=== PATIENT | male | born 1990 | race Two or more races ===

== ENCOUNTER 2017-02-02 19:24 | Emergency (ER) | payer BC, MEDICAID ==
[~2017-02-02] VITALS: Ht 180.3 cm; Wt 95.5 kg
[2017-02-02] MEDS ORDERED: DEPA250T32 PO (19:33)
[2017-02-02] MEDS ORDERED: FLON1SPR (23:05)
[2017-02-02] MEDS ORDERED: CEFD1CAP8 PO (23:05)
[2017-02-02] MEDS ORDERED: MECL-68 PO (23:05)
[2017-02-02 23:13] VITALS: BP 138/72
--- NOTE | 2017-02-03 11:44 | ECGEPIP ---
Stationary ECG Study [facility] - ED Test Date: 2017-02-02 Pat Name: LUIS M MELTON Department: Room: - Gender: M Hotel Server: ct : 1990 Requested By: Edith Pozo Order Number: [id number] Reading MD: Maria Del Rosario Casiano Measurements Intervals [place] Rate: 74 P: 29 MI: 144 QRS: 17 QRSD: 97 T: -4 QT: 355 QTc: 395 Interpretive Statements SINUS RHYTHM NONSPECIFIC T-WAVE ABNORMALITY NO PRIOR FOR COMPARISON Electronically Signed On 02-03-2017 11:44:38 EDT by Maria Del Rosario Casiano
== END 2017-02-02 23:14 | disposition home or self-care (01) ==
LOC: M ED 19:24
DX: J30.9 Allergic rhinitis, unspecified (principal); H81.10 Benign paroxysmal vertigo, unspecified ear

== ENCOUNTER → 2017-02-28 | Outpatient (REF) | payer BC, MEDICAID, OTHER ==
[~2017-02-28] MED LIST: CEFD1CAP8 PO; DEPA250T32 PO; FLON1SPR; MECL-68 PO
== END ==
LOC: M SFHCLERA 12:07
PROVIDERS: ATTEND Family Medicine
DX: Z13.220 Encounter for screening for lipoid disorders (principal)

== ENCOUNTER → 2018-09-11 | Outpatient (REF) | payer BC | LOC: M SFHCLERA 17:59 | PROVIDERS: ATTEND Nurse Practitioner Family | DX: R53.81 Other malaise (principal) ==

== ENCOUNTER → 2019-02-28 | Outpatient (REF) | payer BC ==
[2019-02-28 12:06] LABS: HEMATOCRIT 44.6 % (42.0-52.0); HEMOGLOBIN 15.3 g/dl (13.5-17.5); MEAN CORPUSCULAR HEMOGLOBIN 30.1 pg (27.0-33.0); MEAN CORPUSCULAR HGB CONC 34.3 g/dl (32.0-36.5); MEAN CORPUSCULAR VOLUME 87.8 fl (80.0-96.0); PLATELET COUNT, AUTOMATED 261 10^3/uL (150-450); RED BLOOD COUNT 5.08 10^6/uL (4.30-6.10)
[2019-02-28 12:51] LABS: HEMOGLOBIN A1c 5.1 %
[2019-02-28 13:02] LABS: ALBUMIN 3.9 GM/DL (3.2-5.2); ALT/SGPT 55 U/L (12-78); BLOOD UREA NITROGEN 11 MG/DL (7-18); CALCIUM LEVEL 9.3 MG/DL (8.5-10.1); CARBON DIOXIDE LEVEL 30 MEQ/L (21-32); CHLORIDE LEVEL 104 MEQ/L (98-107); CHOLESTEROL LEVEL 137 MG/DL (<200); CHOLESTEROL RISK RATIO 3.425 (<5); GLOMERULAR FILTRATION RATE > 60.0 (>60); GLUCOSE, FASTING 92 MG/DL (70-100); HDL CHOLESTEROL 40 MG/DL (>40); LDL CHOLESTEROL 73 MG/DL (<100); NON-HDL-C 97 MG/DL; POTASSIUM SERUM 4.1 MEQ/L (3.5-5.1); SODIUM LEVEL 138 MEQ/L (136-145); TOTAL PROTEIN 7.6 GM/DL (6.4-8.2); TRIGLYCERIDES LEVEL 119 MG/DL (<150)
== END ==
LOC: M SFHCLERA 09:27
PROVIDERS: ATTEND Family Medicine
DX: E66.3 Overweight (principal); G40.909 Epilepsy, unspecified, not intractable, without status epilepticus

== ENCOUNTER → 2019-04-04 | Outpatient (CLI) | payer BC ==
--- NOTE | 2019-04-04 08:46 | REP ---
CT IACs / temporal bones: 04/04/2019. Indication: Ear pain. Comparison: 10/20/2010. Technique: Unenhanced axial CT images of the temporal bones/IACs were performed with coronal reconstructions provided. Findings: The cerebellopontine/medullary angles and IACs are unremarkable. No inner ear anatomy abnormalities are present including no evidence of semicircular canal dehiscence. There is no carotid artery aberrancy. The middle ear cavities are clear bilaterally. There is no evidence of ossicular/osseous erosion. The EACs are unremarkable bilaterally as well. No significant mastoid effusion is present. Retention cyst and minimal mucosal thickening is noted within the visualized maxillary sinuses. The nasopharyngeal soft tissue is unremarkable. Impression: Essentially unremarkable CT evaluation of the IACs / temporal bones. Incompletely evaluated mild appearing maxillary sinus disease. Electronically Signed by Madi Mcclain DO 04/04/2019 08:38 A
== END ==
LOC: M RAD 06:58
PROVIDERS: ATTEND Otolaryngology
DX: H92.02 Otalgia, left ear (principal)

== ENCOUNTER → 2021-06-18 | Outpatient (REF) ==
[~2021-06-18] MED LIST changes: -CEFD1CAP8 PO; +CEFD300C41 PO; -MECL-68 PO; +MECL1TAB31 PO
== END ==
LOC: M LABSMTC 10:20
PROVIDERS: ATTEND Family Medicine
DX: Z11.52 Encounter for screening for COVID-19 (principal)

== ENCOUNTER → 2022-02-25 | Outpatient (CLI) | payer BC | LOC: M CARPUL 08:58 | PROVIDERS: ATTEND Physician Assistant | DX: R01.1 Cardiac murmur, unspecified (principal); I10 Essential (primary) hypertension ==

== ENCOUNTER → 2022-03-01 | Outpatient (REF) ==
[2022-03-01 11:03] LABS: RSV AMPLIFICATION NEGATIVE (NEGATIVE)
== END ==
LOC: M LABSMTC 09:04
PROVIDERS: ATTEND Family Medicine
DX: Z11.52 Encounter for screening for COVID-19 (principal)

== ENCOUNTER 2022-03-25 06:01 | Emergency (ER) | payer BC ==
[~2022-03-25] VITALS: Ht 180.3 cm; Wt 94.1 kg
[2022-03-25 06:10] VITALS: BP 145/90
[2022-03-25] MEDS ORDERED: IRBE150T7 (06:11)
[2022-03-25] MEDS ORDERED: DIVA500T9 (06:11)
[2022-03-25] MEDS ORDERED: MORPHINE 4 MG/ML 1ML VIAL/SYRINGE IV PRN (08:15)
[2022-03-25] MEDS ORDERED: ONDANSETRON 4MG 2ML VIAL IV ONE (08:15)
[2022-03-25] MEDS ORDERED: KETOROLAC 30 MG/ML 1ML VIAL IV ONE (08:15)
[2022-03-25 08:55] LABS: BASO # 0.1 10^3/uL (0.0-0.2); BASO % 0.6 % (0.0-1.0); EOS # 0.1 10^3/uL (0.0-0.5); EOS % 0.8 % (0.0-3.0); HEMATOCRIT 39.9 % (42.0-52.0); HEMOGLOBIN 13.9 g/dl (13.5-17.5); LYMPH # 1.4 10^3/uL (1.5-5.0); LYMPH % 16.2 % (24.0-44.0); MEAN CORPUSCULAR HEMOGLOBIN 30.9 pg (27.0-33.0); MEAN CORPUSCULAR HGB CONC 34.8 g/dl (32.0-36.5); MEAN CORPUSCULAR VOLUME 88.7 fl (80.0-96.0); MONO # 0.5 10^3/uL (0.0-0.8); MONO % 5.7 % (2.0-8.0); NEUTROPHILS # 6.7 10^3/uL (1.5-8.5); PLATELET COUNT, AUTOMATED 230 10^3/uL (150-450); WHITE BLOOD COUNT 8.8 10^3/uL (4.0-10.0)
[2022-03-25 09:29] LABS: APPEARANCE, URINE MANUAL HAZY (CLEAR); COLOR, URINE MANUAL AMBER (YELLOW)
[2022-03-25 09:30] LABS: BILIRUBIN, URINE MANUAL NEGATIVE (NEGATIVE); BLOOD URINE MANUAL POSITIVE (NEGATIVE); GLUCOSE, URINE (UA) MANUAL NEGATIVE (NEGATIVE); KETONE, URINE MANUAL 1+ mg/dL (NEGATIVE); LEUKOCYTE ESTERASE, URINE MAN TRACE (NEGATIVE); NITRITE, URINE MANUAL NEGATIVE (NEGATIVE); PROTEIN, URINE MANUAL 1+ mg/dL (NEGATIVE); UROBILINOGEN, URINE MANUAL NORMAL (NORMAL)
[2022-03-25 09:31] LABS: ALBUMIN 3.9 GM/DL (3.2-5.2); ALT/SGPT 78 U/L (12-78); BILIRUBIN,DIRECT 0.2 MG/DL (0.0-0.2); BILIRUBIN,TOTAL 0.6 MG/DL (0.2-1.0); BLOOD UREA NITROGEN 11 MG/DL (7-18); CALCIUM LEVEL 9.4 MG/DL (8.5-10.1); CARBON DIOXIDE LEVEL 23 MEQ/L (21-32); CHLORIDE LEVEL 109 MEQ/L (98-107); CREATININE FOR GFR 0.95 MG/DL (0.70-1.30); GLOMERULAR FILTRATION RATE > 60.0 (>60); GLUCOSE, FASTING 110 MG/DL (70-100); LIPASE 73 U/L (73-393); POTASSIUM SERUM 4.3 MEQ/L (3.5-5.1); SODIUM LEVEL 140 MEQ/L (136-145); TOTAL PROTEIN 7.6 GM/DL (6.4-8.2)
[2022-03-25 09:42] LABS: BACTERIA, URINE SMALL AMOUNT; HYALINE CAST, URINE NONE SEEN /lpf (0-1); MUCUS, URINE MOD AMOUNT (NEGATIVE); RBC, URINE TNTC /hpf (0-3); SQUAMOUS EPITHELIAL CELL URINE SMALL AMOUNT /hpf (SMALL AMT); WBC, URINE 0-1 /hpf (0-3)
[2022-03-25] MEDS ORDERED: KETO10TAB PO (09:52)
[2022-03-25] MEDS ORDERED: CEFD300C PO (09:52)
[2022-03-25] MEDS ORDERED: ONDA-83 PO (09:53)
== END 2022-03-25 10:11 | disposition home or self-care (01) ==
LOC: M ED 06:01
DX: N13.2 Hydronephrosis with renal and ureteral calculous obstruction (principal); K76.0 Fatty (change of) liver, not elsewhere classified; K40.90 Unilateral inguinal hernia, without obstruction or gangrene, not specified as recurrent; I10 Essential (primary) hypertension; Z79.899 Other long term (current) drug therapy
CPT/HCPCS: 74176; 80048; 80076; 81000; 83690; 85025; 96374; 96375; 99284; J1885; J2270; J2405

== ENCOUNTER → 2022-05-03 | Outpatient (CLI) | payer BC ==
[~2022-05-03] MED LIST changes: +CEFD300C PO; +DIVA500T9; +IRBE150T7; +KETO10TAB PO; +ONDA-83 PO
[2022-05-03 06:39] LABS: BASO % 0.7 % (0.0-1.0); EOS # 0.2 10^3/uL (0.0-0.5); EOS % 3.9 % (0.0-3.0); HEMATOCRIT 41.7 % (42.0-52.0); HEMOGLOBIN 14.2 g/dl (13.5-17.5); LYMPH # 3.4 10^3/uL (1.5-5.0); LYMPH % 55.9 % (24.0-44.0); MEAN CORPUSCULAR HEMOGLOBIN 30.4 pg (27.0-33.0); MEAN CORPUSCULAR HGB CONC 34.1 g/dl (32.0-36.5); MEAN CORPUSCULAR VOLUME 89.3 fl (80.0-96.0); MONO # 0.6 10^3/uL (0.0-0.8); MONO % 9.3 % (2.0-8.0); NEUTROPHILS # 1.8 10^3/uL (1.5-8.5); NEUTROPHILS % 29.7 % (36.0-66.0); PLATELET COUNT, AUTOMATED 224 10^3/uL (150-450); RED BLOOD COUNT 4.67 10^6/uL (4.30-6.10); WHITE BLOOD COUNT 6.1 10^3/uL (4.0-10.0)
[2022-05-03 07:16] LABS: ALBUMIN 3.9 G/DL (3.2-5.2); ALKALINE PHOSPHATASE 54 U/L (46-116); ALT/SGPT 53 U/L (7.0-40); AST/SGOT 22 U/L (<34); BILIRUBIN,TOTAL 0.6 MG/DL (0.3-1.2); BLOOD UREA NITROGEN 13 MG/DL (9-23); CALCIUM LEVEL 9.3 MG/DL (8.5-10.1); CARBON DIOXIDE LEVEL 28 MMOL/L (20-31); CHLORIDE LEVEL 104 MMOL/L (98-107); CHOLESTEROL LEVEL 136 MG/DL (<200); CHOLESTEROL RISK RATIO 4.27 (<5); CREATININE FOR GFR 0.72 MG/DL (0.70-1.30); GLOMERULAR FILTRATION RATE > 60.0 (>60); GLUCOSE, FASTING 98 MG/DL (60-100); HDL CHOLESTEROL 31.8 MG/DL (>40); NON-HDL-C 104 MG/DL; POTASSIUM SERUM 3.8 MMOL/L (3.5-5.1); SODIUM LEVEL 142 MMOL/L (136-145); TOTAL 25(OH) VITAMIN D 33.5 NG/ML (20.0-100.0); TOTAL PROTEIN 7.4 G/DL (5.7-8.2); TRIGLYCERIDES LEVEL 231 MG/DL (<150)
[2022-05-04 16:20] LABS: FREE T4 1.17 NG/DL (0.89-1.76)
== END ==
LOC: M LAB 06:07
PROVIDERS: ATTEND Physician Assistant
DX: I10 Essential (primary) hypertension (principal)

== ENCOUNTER → 2022-07-13 | Outpatient (CLI) | payer BC | LOC: M EKG 15:40 | PROVIDERS: ATTEND Physician Assistant | DX: I10 Essential (primary) hypertension (principal); R01.1 Cardiac murmur, unspecified; R94.31 Abnormal electrocardiogram [ECG] [EKG] ==

== ENCOUNTER → 2022-10-05 | Outpatient (CLI) | payer BC | LOC: M RAD 15:46 | PROVIDERS: ATTEND Physician Assistant | DX: N20.0 Calculus of kidney (principal) ==

== ENCOUNTER → 2022-11-11 | Outpatient (CLI) | payer BC ==
[2022-11-11 16:58] LABS: ALBUMIN 4.2 G/DL (3.2-5.2); ALKALINE PHOSPHATASE 45 U/L (46-116); ALT/SGPT 43 U/L (7.0-40); AST/SGOT 23 U/L (<34); BILIRUBIN,TOTAL 0.7 MG/DL (0.3-1.2); BLOOD UREA NITROGEN 15 MG/DL (9-23); CALCIUM LEVEL 9.2 MG/DL (8.5-10.1); CARBON DIOXIDE LEVEL 30 MMOL/L (20-31); CHLORIDE LEVEL 106 MMOL/L (98-107); CREATININE FOR GFR 0.72 MG/DL (0.70-1.30); GLOMERULAR FILTRATION RATE > 60.0 (>60); GLUCOSE, FASTING 69 MG/DL (60-100); POTASSIUM SERUM 4.1 MMOL/L (3.5-5.1); SODIUM LEVEL 139 MMOL/L (136-145); TOTAL PROTEIN 7.2 G/DL (5.7-8.2)
[2022-11-11 17:01] LABS: FREE T4 1.09 NG/DL (0.89-1.76); TOTAL 25(OH) VITAMIN D 37.3 NG/ML (20.0-100.0)
[2022-11-11 18:06] LABS: THYROID STIMULATING HORMONE 4.229 uIU/ML (0.55-4.78)
== END ==
LOC: M LAB 15:57
PROVIDERS: ATTEND Physician Assistant
DX: R79.89 Other specified abnormal findings of blood chemistry (principal); E55.9 Vitamin D deficiency, unspecified

== ENCOUNTER → 2023-04-10 | Outpatient (REF) ==
[~2023-04-10] MED LIST changes: -CEFD300C41 PO; +CEFD300C42 PO; +MECL-209 PO; -MECL1TAB31 PO
== END ==
LOC: M EMP 08:18
PROVIDERS: ATTEND Family Medicine
DX: Z11.52 Encounter for screening for COVID-19 (principal)

== ENCOUNTER → 2023-04-30 | Outpatient (REF) | payer BC ==
[~2023-04-30] MED LIST changes: +CEFD1CAP9 PO; -CEFD300C42 PO
[2023-04-30 08:06] LABS: SEMEN APPEARANCE OPAQUE (OPAQUE); SEMEN VISCOSITY LIQUID (LIQUID)
[2023-04-30 08:07] LABS: SPERM CONCENTRATION 61.8 M/ml (>=15.0); WBC CONCENTRATION <=1 M/ml (<=1 M/ml)
== END ==
LOC: M LAB REF 06:44
PROVIDERS: ATTEND Physician Assistant
DX: Z31.41 Encounter for fertility testing (principal)

== ENCOUNTER 2023-06-12 08:07 | Emergency (ER) | payer BC ==
[~2023-06-12] VITALS: Ht 180.3 cm; Wt 95.0 kg
[~2023-06-12 08:07] MED LIST changes: +IRBE150T27; -IRBE150T7
[2023-06-12] MEDS ORDERED: HYDR-3363 (08:21)
[2023-06-12] MEDS ORDERED: SERT50TA29 (08:21)
[2023-06-12 08:42] LABS: BASO # 0.1 10^3/uL (0.0-0.2); BASO % 0.7 % (0.0-1.0); EOS # 0.2 10^3/uL (0.0-0.5); EOS % 3.4 % (0.0-3.0); HEMATOCRIT 39.6 % (42.0-52.0); HEMOGLOBIN 14.1 g/dl (13.5-17.5); LYMPH # 2.5 10^3/uL (1.5-5.0); LYMPH % 35.6 % (24.0-44.0); MEAN CORPUSCULAR HEMOGLOBIN 30.8 pg (27.0-33.0); MEAN CORPUSCULAR HGB CONC 35.6 g/dl (32.0-36.5); MEAN CORPUSCULAR VOLUME 86.5 fl (80.0-96.0); MONO # 0.5 10^3/uL (0.0-0.8); MONO % 6.8 % (2.0-8.0); NEUTROPHILS # 3.7 10^3/uL (1.5-8.5); NEUTROPHILS % 52.8 % (36.0-66.0); PLATELET COUNT, AUTOMATED 212 10^3/uL (150-450); RED BLOOD COUNT 4.58 10^6/uL (4.30-6.10); WHITE BLOOD COUNT 7.1 10^3/uL (4.0-10.0)
[2023-06-12 09:05] LABS: CK-MB VALUE MASS < 1.0 NG/ML (<3.6)
[2023-06-12 09:07] LABS: BLOOD UREA NITROGEN 12 MG/DL (9-23); CALCIUM LEVEL 9.1 MG/DL (8.5-10.1); CARBON DIOXIDE LEVEL 26 MMOL/L (20-31); CHLORIDE LEVEL 107 MMOL/L (98-107); CPK CREATINE PHOSPHOKINASE 97 U/L (46-171); GLOMERULAR FILTRATION RATE > 60.0 (>60); GLUCOSE, FASTING 92 MG/DL (60-100); MB/CK RELATIVE INDEX 1.03 (< OR =4); POTASSIUM SERUM 4.1 MMOL/L (3.5-5.1); SODIUM LEVEL 141 MMOL/L (136-145)
[2023-06-12 10:20] LABS: CK-MB VALUE MASS < 1.0 NG/ML (<3.6)
[2023-06-12 10:22] LABS: CPK CREATINE PHOSPHOKINASE 89 U/L (46-171); MB/CK RELATIVE INDEX 1.12 (< OR =4)
[2023-06-12] MEDS ORDERED: KETOROLAC 30 MG/ML 1ML VIAL IM ONE (12:05)
[2023-06-12] MEDS ORDERED: NAPR-837 PO (13:33)
[2023-06-12 13:39] VITALS: BP 139/84; TEMP 98.6; O2SAT 98
== END 2023-06-12 13:40 | disposition home or self-care (01) ==
LOC: M ED 11:57
DX: M94.0 Chondrocostal junction syndrome [Tietze] (principal); E78.5 Hyperlipidemia, unspecified; F41.9 Anxiety disorder, unspecified; F10.10 Alcohol abuse, uncomplicated; G40.909 Epilepsy, unspecified, not intractable, without status epilepticus; Z79.1 Long term (current) use of non-steroidal anti-inflammatories (NSAID); Z79.899 Other long term (current) drug therapy
CPT/HCPCS: 71046; 80048; 82550; 82553; 84484; 85025; 93005; 96372; 99284; J1885

== ENCOUNTER 2023-06-18 13:14 | Emergency (ER) | payer BC ==
[~2023-06-18] VITALS: Ht 180.3 cm; Wt 96.9 kg
[~2023-06-18 13:14] MED LIST changes: +HYDR-3363; +NAPR-837 PO; +SERT50TA29
[2023-06-18] MEDS ORDERED: NAPR-885 PO (13:21)
[2023-06-18 14:03] LABS: BASO # 0.1 10^3/uL (0.0-0.2); BASO % 0.7 % (0.0-1.0); EOS % 0.4 % (0.0-3.0); HEMATOCRIT 42.4 % (42.0-52.0); HEMOGLOBIN 15.2 g/dl (13.5-17.5); LYMPH # 2.2 10^3/uL (1.5-5.0); MEAN CORPUSCULAR HEMOGLOBIN 30.8 pg (27.0-33.0); MEAN CORPUSCULAR HGB CONC 35.8 g/dl (32.0-36.5); MONO # 0.6 10^3/uL (0.0-0.8); MONO % 7.6 % (2.0-8.0); NEUTROPHILS # 5.4 10^3/uL (1.5-8.5); NEUTROPHILS % 63.3 % (36.0-66.0); PLATELET COUNT, AUTOMATED 262 10^3/uL (150-450); RED BLOOD COUNT 4.93 10^6/uL (4.30-6.10); WHITE BLOOD COUNT 8.5 10^3/uL (4.0-10.0)
[2023-06-18] MEDS ORDERED: ISOVUE-370 76% 100ML VIAL As Ordered ONE (14:08)
[2023-06-18 14:13] LABS: INR 0.97; PROTHROMBIN TIME 12.6 SECONDS (12.5-14.5)
[2023-06-18 14:21] LABS: CK-MB VALUE MASS < 1.0 NG/ML (<3.6); LIPASE 27 U/L (12-53)
[2023-06-18 14:24] LABS: ALBUMIN 4.3 G/DL (3.2-5.2); ALKALINE PHOSPHATASE 46 U/L (46-116); ALT/SGPT 47 U/L (7.0-40); AST/SGOT 20 U/L (<34); BILIRUBIN,DIRECT 0.3 MG/DL (<0.4); BILIRUBIN,TOTAL 0.8 MG/DL (0.3-1.2); BLOOD UREA NITROGEN 19 MG/DL (9-23); CARBON DIOXIDE LEVEL 28 MMOL/L (20-31); CHLORIDE LEVEL 108 MMOL/L (98-107); CREATININE FOR GFR 0.64 MG/DL (0.70-1.30); GLOMERULAR FILTRATION RATE > 60.0 (>60); GLUCOSE, FASTING 108 MG/DL (60-100); POTASSIUM SERUM 3.8 MMOL/L (3.5-5.1); SODIUM LEVEL 143 MMOL/L (136-145); TOTAL PROTEIN 7.4 G/DL (5.7-8.2)
[2023-06-18 14:26] LABS: CPK CREATINE PHOSPHOKINASE 45 U/L (46-171); MB/CK RELATIVE INDEX 2.22 (< OR =4)
[2023-06-18] MEDS: KETOROLAC 30 MG/ML 1ML VIAL IV ONE (14:35)
[2023-06-18 15:28] VITALS: BP 135/76; TEMP 97.3; O2SAT 97
== END 2023-06-18 15:36 | disposition home or self-care (01) ==
LOC: M ED 13:14
DX: R07.9 Chest pain, unspecified (principal); I10 Essential (primary) hypertension; Z79.811 Long term (current) use of aromatase inhibitors; Z79.899 Other long term (current) drug therapy
CPT/HCPCS: 71045; 71275; 80047; 80048; 80076; 82550; 82553; 83690; 84484; 85025; 85610; 93005; 96374; 99284; J1885; Q9967

== ENCOUNTER → 2023-08-18 | Outpatient (CLI) | payer BC ==
[~2023-08-18] MED LIST changes: +NAPR-885 PO
== END ==
LOC: M PLAIMG 14:25
PROVIDERS: ATTEND Physician Assistant
DX: R07.89 Other chest pain (principal)

== ENCOUNTER → 2023-08-29 | Outpatient (CLI) | payer BC | LOC: M RAD 06:36 | PROVIDERS: ATTEND Physician Assistant | DX: K76.0 Fatty (change of) liver, not elsewhere classified (principal); R07.89 Other chest pain; R10.13 Epigastric pain ==

== ENCOUNTER → 2023-09-08 | Outpatient (CLI) | payer BC ==
[2023-09-08 16:40] LABS: APPEARANCE, URINE HAZY (CLEAR); BACTERIA, URINE AUTO NEGATIVE (NEGATIVE); BILIRUBIN, URINE AUTO NEGATIVE (NEGATIVE); BLOOD, URINE BLOOD 1+ (NEGATIVE); COLOR, URINE YELLOW (YELLOW); GLUCOSE, URINE (UA) AUTO NEGATIVE (NEGATIVE); KETONE, URINE AUTO NEGATIVE (NEGATIVE); LEUKOCYTE ESTERASE, URINE AUTO NEGATIVE (NEGATIVE); MUCUS, URINE LARGE (NEGATIVE); NITRITE, URINE AUTO NEGATIVE (NEGATIVE); PROTEIN, URINE AUTO 1+ mg/dL (NEGATIVE); RBC, URINE AUTO 3 /HPF (0-3); SPECIFIC GRAVITY URINE AUTO 1.025 (1.002-1.035); SQUAMOUS EPITHELIAL CELL UR AU 0 /HPF (0-6); UROBILINOGEN, URINE AUTO 0.2 mg/dL (0.0-2.0); WBC, URINE AUTO 0 /HPF (0-3)
[2023-09-08 16:56] LABS: URIC ACID 6.4 MG/DL (3.7-9.2)
[2023-09-08 16:57] LABS: C REACTIVE PROTEIN QUANTITATIV < 0.40 MG/DL (<1.0); LIPASE 34 U/L (12-53)
[2023-09-08 16:59] LABS: RHEUMATOID FACTOR QUANT < 3.5 IU/ML (<14)
[2023-09-08 17:03] LABS: FREE T4 1.14 NG/DL (0.89-1.76)
[2023-09-08 23:49] LABS: HEPATITIS C VIRUS ABY INDEX < 0.02 INDEX (<0.8)
[2023-09-08 23:50] LABS: HEPATITIS B CORE ANTIBODY IGM NEGATIVE (NEGATIVE)
== END ==
LOC: M LAB 15:45
PROVIDERS: ATTEND Physician Assistant
DX: R07.89 Other chest pain (principal); R10.13 Epigastric pain

== ENCOUNTER → 2023-09-11 | Outpatient (REF) | payer BC | LOC: M LAB REF 09:13 | PROVIDERS: ATTEND Physician Assistant | DX: R07.89 Other chest pain (principal) ==

== ENCOUNTER → 2023-10-31 | Outpatient (CLI) | payer BC ==
[2023-10-31 16:26] LABS: APPEARANCE, URINE CLEAR (CLEAR); BACTERIA, URINE AUTO NEGATIVE (NEGATIVE); BILIRUBIN, URINE AUTO NEGATIVE (NEGATIVE); BLOOD, URINE BLOOD NEGATIVE (NEGATIVE); COLOR, URINE YELLOW (YELLOW); GLUCOSE, URINE (UA) AUTO NEGATIVE (NEGATIVE); KETONE, URINE AUTO NEGATIVE (NEGATIVE); LEUKOCYTE ESTERASE, URINE AUTO NEGATIVE (NEGATIVE); MUCUS, URINE SMALL (NEGATIVE); NITRITE, URINE AUTO NEGATIVE (NEGATIVE); PROTEIN, URINE AUTO NEGATIVE (NEGATIVE); RBC, URINE AUTO 2 /HPF (0-3); SPECIFIC GRAVITY URINE AUTO 1.024 (1.002-1.035); SQUAMOUS EPITHELIAL CELL UR AU 0 /HPF (0-6); UROBILINOGEN, URINE AUTO 0.2 mg/dL (0.0-2.0); WBC, URINE AUTO 0 /HPF (0-3)
== END ==
LOC: M LAB 15:57
PROVIDERS: ATTEND Physician Assistant
DX: R10.13 Epigastric pain (principal)

== ENCOUNTER → 2023-11-30 | Outpatient (CLI) | payer BC | LOC: M RAD 09:54 | PROVIDERS: ATTEND Physician Assistant | DX: Z09 Encounter for follow-up examination after completed treatment for conditions other than malignant neoplasm (principal); Z87.442 Personal history of urinary calculi ==

== ENCOUNTER → 2023-11-30 | Outpatient (REF) | payer BC | LOC: M LAB REF 10:46 | PROVIDERS: ATTEND Nurse Practitioner Family | DX: R19.7 Diarrhea, unspecified (principal) ==

== ENCOUNTER 2023-12-28 12:05 | Day surgery (SDC) | payer BC ==
[~2023-12-28] VITALS: Ht 180.3 cm; Wt 95.3 kg
[~2023-12-28 12:05] MED LIST changes: +DEPA1TAB3 PO; +HYDR-3363 PO; +IRBE150T27 PO; +OMEP40CA4 PO; +SERT50TA29 PO; +SUCR1TA PO
[2023-12-28] MEDS: NS 1,000 ML IV ONE (13:32)
[2023-12-28] MEDS ORDERED: propofoL 200 MG/20 ML VIAL As Ordered ONE (14:07)
[2023-12-28] MEDS ORDERED: fentaNYL 100 MCG/2 ML INJECTION As Ordered ONE (14:07)
[2023-12-28] MEDS ORDERED: LIDOCAINE 2% 100MG/5ML SDV (FOR ANES.) As Ordered ONE (14:07)
[2023-12-28 14:49] VITALS: TEMP 98.6
[2023-12-28 15:00] VITALS: BP 128/78; O2SAT 94
== END 2023-12-28 15:06 | disposition home or self-care (01) ==
LOC: M OPP 12:05
PROVIDERS: ATTEND Internal Medicine Gastroenterology
DX: K21.00 Gastro-esophageal reflux disease with esophagitis, without bleeding (principal); R10.13 Epigastric pain; R19.7 Diarrhea, unspecified; R07.89 Other chest pain; Z79.899 Other long term (current) drug therapy; I10 Essential (primary) hypertension
CPT/HCPCS: 43239; 88305; J3010

== ENCOUNTER → 2024-02-23 | Outpatient (REF) | LOC: M EMP 10:36 | PROVIDERS: ATTEND Family Medicine | DX: Z11.52 Encounter for screening for COVID-19 (principal) ==

== ENCOUNTER 2024-04-01 07:54 | Day surgery (SDC) | payer BC ==
[~2024-04-01] VITALS: Ht 180.3 cm; Wt 90.2 kg
[~2024-04-01 07:54] MED LIST changes: +NS 250 ML IV ONE
[2024-04-01] MEDS ORDERED: propofoL 200 MG/20 ML VIAL As Ordered ONE (09:32)
[2024-04-01] MEDS ORDERED: GLYCOPYRROLATE INJ 0.2 MG/ML 2 ML VIAL As Ordered ONE (09:32)
[2024-04-01 09:50] VITALS: TEMP 96.4
[2024-04-01 10:13] VITALS: BP 121/79; O2SAT 96
== END 2024-04-01 10:16 | disposition home or self-care (01) ==
LOC: M OPP 07:54
PROVIDERS: ATTEND Internal Medicine Gastroenterology
DX: K62.1 Rectal polyp (principal); R19.7 Diarrhea, unspecified; K62.89 Other specified diseases of anus and rectum; K21.9 Gastro-esophageal reflux disease without esophagitis; I10 Essential (primary) hypertension; R56.9 Unspecified convulsions; Z79.899 Other long term (current) drug therapy; E89.6 Postprocedural adrenocortical (-medullary) hypofunction; Z86.16 Personal history of COVID-19
CPT/HCPCS: 45380; 45385; 88305; J1596

== ENCOUNTER → 2024-06-07 | Outpatient (REF) | payer BC ==
[~2024-06-07] MED LIST changes: -NS 250 ML IV ONE
[2024-06-07 17:08] LABS: APPEARANCE, URINE HAZY (CLEAR); BACTERIA, URINE AUTO NEGATIVE (NEGATIVE); BILIRUBIN, URINE AUTO NEGATIVE (NEGATIVE); BLOOD, URINE BLOOD NEGATIVE (NEGATIVE); COLOR, URINE AMBER (YELLOW); GLUCOSE, URINE (UA) AUTO NEGATIVE (NEGATIVE); KETONE, URINE AUTO TRACE mg/dL (NEGATIVE); LEUKOCYTE ESTERASE, URINE AUTO NEGATIVE (NEGATIVE); MUCUS, URINE LARGE (NEGATIVE); NITRITE, URINE AUTO NEGATIVE (NEGATIVE); PROTEIN, URINE AUTO 1+ mg/dL (NEGATIVE); RBC, URINE AUTO 1 /HPF (0-3); SQUAMOUS EPITHELIAL CELL UR AU 0 /HPF (0-6); UROBILINOGEN, URINE AUTO 0.2 mg/dL (0.0-2.0); WBC, URINE AUTO 0 /HPF (0-3)
[2024-06-07 18:27] LABS: BASO % 0.7 % (0.0-1.0); EOS # 0.2 10^3/uL (0.0-0.5); HEMATOCRIT 45.9 % (42.0-52.0); HEMOGLOBIN 15.6 g/dl (13.5-17.5); LYMPH # 2.7 10^3/uL (1.5-5.0); LYMPH % 44.6 % (24.0-44.0); MEAN CORPUSCULAR HEMOGLOBIN 29.4 pg (27.0-33.0); MEAN CORPUSCULAR VOLUME 86.4 fl (80.0-96.0); MONO # 0.5 10^3/uL (0.0-0.8); MONO % 7.8 % (2.0-8.0); NEUTROPHILS # 2.6 10^3/uL (1.5-8.5); NEUTROPHILS % 43.4 % (36.0-66.0); PLATELET COUNT, AUTOMATED 262 10^3/uL (150-450); RED BLOOD COUNT 5.31 10^6/uL (4.30-6.10); WHITE BLOOD COUNT 6.1 10^3/uL (4.0-10.0)
[2024-06-07 18:41] LABS: TOTAL PROTEIN,RANDOM URINE 21.4 MG/DL (0.0-14.0)
[2024-06-07 18:42] LABS: ERYTHROCYTE SEDIMENTATION RATE 11 mm/hr (0-15)
[2024-06-07 18:49] LABS: C REACTIVE PROTEIN QUANTITATIV < 0.50 MG/DL (<1.0)
[2024-06-07 18:50] LABS: COMPLEMENT C3 214.7 MG/DL (84.0-160.0); COMPLEMENT C4 51.2 MG/DL (12-36)
[2024-06-07 18:51] LABS: ALBUMIN 4.5 G/DL (3.2-5.2); ALKALINE PHOSPHATASE 63 U/L (40-129); ALT/SGPT 45 U/L (7.0-40); AST/SGOT 21 U/L (<34); BILIRUBIN,TOTAL 0.6 MG/DL (0.3-1.2); BLOOD UREA NITROGEN 13 MG/DL (9-23); CARBON DIOXIDE LEVEL 28 MMOL/L (20-31); CHLORIDE LEVEL 100 MMOL/L (98-107); CREATININE FOR GFR 0.74 MG/DL (0.70-1.30); GLOMERULAR FILTRATION RATE > 60.0 (>60); GLUCOSE, FASTING 73 MG/DL (60-100); POTASSIUM SERUM 3.9 MMOL/L (3.5-5.1); SODIUM LEVEL 143 MMOL/L (136-145); TOTAL PROTEIN 8.9 G/DL (5.7-8.2)
[2024-06-07 18:59] LABS: CREATININE,RANDOM URINE 349.3 MG/DL
== END ==
LOC: M SFHCRHEU 14:18
PROVIDERS: ATTEND Internal Medicine Rheumatology
DX: R76.8 Other specified abnormal immunological findings in serum (principal); R53.83 Other fatigue

== ENCOUNTER → 2024-06-17 | Outpatient (REF) | LOC: M EMP 06:34 | PROVIDERS: ATTEND Family Medicine | DX: Z11.52 Encounter for screening for COVID-19 (principal) ==

== ENCOUNTER → 2024-11-29 | Outpatient (CLI) | payer BC ==
[~2024-11-29] MED LIST changes: -DEPA250T32 PO; +DIVA-65 PO
== END ==
LOC: M RAD 15:40
PROVIDERS: ATTEND Physician Assistant
DX: N20.0 Calculus of kidney (principal)

== ENCOUNTER → 2024-12-11 | Outpatient (CLI) | payer BC | LOC: M SLEEP HO 10:56 | PROVIDERS: ATTEND Family Medicine | DX: R06.83 Snoring (principal) ==

== ENCOUNTER → 2025-01-21 | Outpatient (CLI) | payer BC ==
[2025-01-21 16:48] LABS: APPEARANCE, URINE CLEAR (CLEAR); BACTERIA, URINE AUTO NEGATIVE (NEGATIVE); BILIRUBIN, URINE AUTO NEGATIVE (NEGATIVE); BLOOD, URINE BLOOD NEGATIVE (NEGATIVE); GLUCOSE, URINE (UA) AUTO NEGATIVE (NEGATIVE); KETONE, URINE AUTO NEGATIVE (NEGATIVE); LEUKOCYTE ESTERASE, URINE AUTO NEGATIVE (NEGATIVE); MUCUS, URINE LARGE (NEGATIVE); NITRITE, URINE AUTO NEGATIVE (NEGATIVE); PROTEIN, URINE AUTO NEGATIVE (NEGATIVE); RBC, URINE AUTO 1 /HPF (0-3); SPECIFIC GRAVITY URINE AUTO 1.025 (1.002-1.035); SQUAMOUS EPITHELIAL CELL UR AU 0 /HPF (0-6); UROBILINOGEN, URINE AUTO 2.0 mg/dL (0.0-2.0); WBC, URINE AUTO 1 /HPF (0-3)
[2025-01-21 17:07] LABS: CALCIUM LEVEL 9.7 MG/DL (8.5-10.1); CARBON DIOXIDE LEVEL 31 MMOL/L (20-31); CHLORIDE LEVEL 102 MMOL/L (98-107); CREATININE FOR GFR 0.79 MG/DL (0.70-1.30); GLOMERULAR FILTRATION RATE > 90.0 (>60); POTASSIUM SERUM 3.9 MMOL/L (3.5-5.1); SODIUM LEVEL 143 MMOL/L (136-145)
== END ==
LOC: M LAB 16:11
PROVIDERS: ATTEND Family Medicine
DX: I10 Essential (primary) hypertension (principal)

== ENCOUNTER → 2025-02-03 | Outpatient (CLI) | payer BC ==
[2025-02-03 17:46] LABS: ESTIMATED AVERAGE GLUCOSE 105.0 MG/DL (60-110)
[2025-02-03 18:01] LABS: CHOLESTEROL LEVEL 186.0 MG/DL (<200); CHOLESTEROL RISK RATIO 5.18 (<5); LDL CHOLESTEROL 84.1 MG/DL (<100); NON-HDL-C 150.1 MG/DL; TRIGLYCERIDES LEVEL 330.0 MG/DL (<150)
== END ==
LOC: M RAD 16:37
DX: Z00.00 Encounter for general adult medical examination without abnormal findings (principal); M54.42 Lumbago with sciatica, left side

== ENCOUNTER → 2025-02-12 | Outpatient (CLI) | payer BC ==
[2025-02-12 16:22] LABS: BASO # 0.0 10^3/uL (0.0-0.2); BASO % 0.6 % (0.0-1.0); EOS # 0.2 10^3/uL (0.0-0.5); EOS % 3.1 % (0.0-3.0); LYMPH # 3.1 10^3/uL (1.5-5.0); LYMPH % 47.5 % (24.0-44.0); MONO # 0.5 10^3/uL (0.0-0.8); MONO % 8.0 % (2.0-8.0); NEUTROPHILS # 2.7 10^3/uL (1.5-8.5); NEUTROPHILS % 40.5 % (36.0-66.0); PLATELET COUNT, AUTOMATED 231 10^3/uL (150-450)
[2025-02-12 16:27] LABS: ERYTHROCYTE SEDIMENTATION RATE 3 mm/hr (0-15)
[2025-02-12 16:54] LABS: ALT/SGPT 47 U/L (7.0-40); AST/SGOT 21 U/L (<34); C REACTIVE PROTEIN QUANTITATIV < 0.50 MG/DL (<1.0); CALCIUM LEVEL 9.5 MG/DL (8.5-10.1); CARBON DIOXIDE LEVEL 29 MMOL/L (20-31); CHLORIDE LEVEL 103 MMOL/L (98-107); CREATININE FOR GFR 0.78 MG/DL (0.70-1.30); GLOMERULAR FILTRATION RATE > 90.0 (>60); POTASSIUM SERUM 4.0 MMOL/L (3.5-5.1); SODIUM LEVEL 143 MMOL/L (136-145)
[2025-02-12 17:34] LABS: HEPATITIS C VIRUS ABY INDEX 0.02 INDEX (<0.8)
== END ==
LOC: M LAB 15:53
PROVIDERS: ATTEND Internal Medicine Rheumatology
DX: R76.8 Other specified abnormal immunological findings in serum (principal); R53.83 Other fatigue; R74.01 Elevation of levels of liver transaminase levels

== ENCOUNTER → 2025-02-13 | Outpatient (CLI) | payer BC | LOC: M LAB 06:34 | PROVIDERS: ATTEND Internal Medicine Rheumatology | DX: R76.8 Other specified abnormal immunological findings in serum (principal); R53.83 Other fatigue ==

== ENCOUNTER → 2025-02-26 | Outpatient (REF) | LOC: M EMP 09:58 | PROVIDERS: ATTEND Family Medicine | DX: Z02.89 Encounter for other administrative examinations (principal) ==